=== PATIENT | male | born 1935 | race Caucasian/White ===

== ENCOUNTER 2017-06-26 08:52 | Emergency (ER) | payer MEDICARE, BC ==
[~2017-06-26 08:52] MED LIST: ASPI81 PO; ATOR10 PO; LISI-363 PO
[2017-06-26 08:54] VITALS: BP 150/75; PULSE 85; RESP 18; TEMP 98.8; O2SAT 95
[2017-06-26] MEDS ORDERED: ATOR10TA15 PO (08:58)
[2017-06-26] MEDS ORDERED: VOLT1GEL4 (08:58)
[2017-06-26] MEDS ORDERED: LISI-515 PO (08:58)
[2017-06-26] MEDS ORDERED: KETOROLAC TROMETHAMINE 60 MG/2 ML (IM) VIAL IM ONE (09:15)
--- NOTE | 2017-06-26 09:16 | PD ---
HPI Chief Complaint: Musculoskeletal Complaint Time Seen by Provider: 08:56 Travel History International Travel<30 days: No Contact w/Intl Traveler<30days: No Traveled to known affect area: No History of Present Illness HPI 82 y/o male presents with right foot pain since early this morning at 4 AM in his sleep. He denies any trauma. He denies other concurrent complaints. He states he went to a foot doctor before and they took an x-ray and didn't injection but he is not sure exactly what it was. He denies specific modifying factors other than movement. Severity is moderate. Quality Sharp. PFSH Past Medical History Cancer: Yes (PROSTATE CA) High Cholesterol: Yes Diabetes: No Diminished Hearing: No Hypertension: Yes PNEUMOCCOCAL Vaccine (Year): 2009 Past Surgical History Genitourinary Surgery: Yes (PENILE IMPLANT) Other Surgery: Yes (PROSTATECTOMY) Social History Alcohol Use: Yes (2/DAILY) Tobacco Use: No Substance Use: No Allergies-Medications (Allergen,Severity, Reaction): Coded Allergies: penicillin G (Unverified Allergy, Severe, RASH, 06/26/17) Reported Meds & Prescriptions Reported Meds & Active Scripts Active Reported Voltaren (Diclofenac Sodium) 100 Gm Gel..gram. Lisinopril 20 Mg Tab 20 Mg PO DAILY Atorvastatin (Atorvastatin Calcium) 10 Mg Tab 10 Mg PO HS Review of Systems Except as stated in HPI: all other systems reviewed are Neg Physical Exam Narrative GENERAL: Well-nourished, well-developed patient. SKIN: Warm and dry. HEAD: Normocephalic and atraumatic. EYES: No injection or drainage. ENT: No nasal drainage noted. NECK: Supple, trachea midline. CARDIOVASCULAR: Regular rate and rhythm RESPIRATORY: No increased effort. No accessory muscle use. EXTREMITIES: No edema.Pain with palpation of right lateral upper foot without redness or crepitus, no pain with other joints , neurovascularly intact, no lacerations over, compartments soft. NEUROLOGICAL: Awake and alert. Motor and sensory grossly within normal limits. Normal speech. Data Data Last Documented VS Vital Signs Date Time Temp Pulse Resp B/P (MAP) Pulse Ox O2 Delivery O2 Flow Rate FiO2 06/26/17 08:54 98.8 85 18 150/75 (100) 95 Orders Orders Foot, Complete ([id number]) (06/26/17 ) Ketorolac Inj (Toradol Inj) (06/26/17 09:15) MDM Medical Decision Making Medical Screen Exam Complete: Yes Emergency Medical Condition: Yes Medical Record Reviewed: Yes (past history confirmed) Interpretation(s) right foot xray no emergent findings Differential Diagnosis Strain, gout, arthritis Narrative Course We will check x-ray and dose with Toradol and reevaluate Patient denies any new complaints and states that they are feeling better. Patient happy with care, all questions answered. Patient knows that follow up is incumbent on them and to return to the emergency room immediately if new or worsening symptoms develop. Patient given strict return precautions, vitals reviewed and are normal, agrees to further workup as an outpatient. Diagnosis Primary Impression: Right foot pain Patient Instructions: General Instructions Additional Instructions: tylenol as needed, follow with primary this week, return as needed Med/Other Pt SpecificInfo: No Change to Meds Disposition: 01 DISCHARGE HOME Condition: Stable Candi Quiroz MD Jun 26, 2017 09:16
--- NOTE | 2017-06-26 09:48 | RADRPT ---
EXAM DATE/TIME: 06/26/2017 09:16 [facility] COMPARISON: No previous studies available for comparison. INDICATIONS : Sudden onset of right foot pain, no known injury MEDICAL HISTORY : Carcinoma, prostatic. SURGICAL HISTORY : None. ENCOUNTER: Initial ACUITY: 1 day PAIN SCORE: 5/10 LOCATION: Right foot FINDINGS: Three view examination of the right foot demonstrates no soft tissue swelling, dislocation, or fractu re. The tarsal bones appear intact. The interphalangeal and metatarsophalangeal joints are intact. The calcaneus is intact. Bony mineralization is normal. CONCLUSION: Unremarkable exam for patient's age. Daniel Sanchez MD on June 26, 2017 at 9:45 Board Certified Radiologist. This report was verified electronically.
== END 2017-06-26 10:07 | disposition home or self-care (01) ==
LOC: PHED 08:52
DX: M79.671 Pain in right foot (principal)
CPT/HCPCS: 73630; 96372; 99284; J1885